=== PATIENT | female | born 1965 | race Caucasian/White ===

== ENCOUNTER 2018-11-20 18:57 | Emergency (ER) | payer BC ==
--- NOTE | 2018-11-20 20:27 | ED ---
Upper Extremity Pain - HPI Summary HPI Summary: This patient is a 53 year old female presenting to [facility] with a chief complaint of pain and swelling in the third digit of her left hand. The patient states this was caused by a scratch 2 weeks ago and has noticed the increased swelling and pain in the last 4-5 days. She states [place] and someone who happened to be a nurse there saw it and suggested she come to the ED. She states the cat used to be feral so she does not know if the cat has had her vaccinations. She rates her pain 5/10 in severity. - History of Current Complaint Chief Complaint: EDExtremityUpper Stated Complaint: LT MIDDLE FINGER CAT SCRATCH PER PT Time Seen by Provider: 11/20/18 20:12 Hx Obtained From: Patient Mechanism Of Injury: Other - Animal scratch Onset/Duration: Started Days Ago Timing: Lasting Days Pain Location: Finger - Allergies/Home Medications Allergies/Adverse Reactions: Allergies Allergy/AdvReac Type Severity Reaction Status Date / Time chlorhexidine Allergy Rash And Verified 11/20/18 19:41 Itching PMH/Surg Hx/FS Hx/Imm Hx Endocrine/Hematology History: Denies: Hx Diabetes - Surgical History Surgical History: Yes Surgery Procedure, Year, and Place: Hysterectomy in October 2018. - Immunization History Date of Tetanus Vaccine: unknown Infectious Disease History: No Infectious Disease History: Denies: Traveled Outside the [place] in Last 30 Days - Family History Known Family History: Negative: Seizure Disorder - Social History Alcohol Use: Occasionally Substance Use Type: Reports: None Smoking Status (MU): Never Smoked Tobacco Review of Systems Negative: Fever, Chills Negative: Arthralgia, Myalgia All Other Systems Reviewed And Are Negative: No Physical Exam - Summary Physical Exam Summary: Appearance: Well-appearing, Well-nourished, lying in bed comfortably Skin: Warm, dry, no obvious rash. Paronychia on left third digit. Eyes: sclera anicteric, no conjunctival pallor ENT: mucous membranes moist, pharynx appears normal Neck: Supple, nontender Respiratory: Clear to auscultation, no signs of respiratory distress Cardiovascular: Normal S1, S2. No murmurs. Normal distal pulses in tibial and radial bilaterally. Abdomen: Soft, nontender, normal active bowel sounds present Musculoskeletal: Normal, Strength/ROM Intact Neurological: A&Ox3, awake and alert, mentation is normal, speech is fluent and appropriate Psychiatric: affect is normal, does not appear anxious or depressed Triage Information Reviewed: Yes Vital Signs On Initial Exam: Initial Vitals Temp Pulse Resp BP Pulse Ox 98.9 F 79 16 147/94 97 11/20/18 19:00 11/20/18 19:00 11/20/18 19:00 11/20/18 19:00 11/20/18 19:00 Vital Signs Reviewed: Yes Diagnostics - Vital Signs Vital Signs Temp Pulse Resp BP Pulse Ox 11/20/18 19:00 98.9 F 79 16 147/94 97 - Laboratory Lab Statement: Any lab studies that have been ordered have been reviewed, and results considered in the medical decision making process. Course/Dx - Course Course Of Treatment: This patient is a 53 year old female presenting to [facility] with a chief complaint of pain and swelling in the third digit of her left hand , caused by a cat scratch. Physical exam was remarkable for paronychia on the affected area. I performed a digital block on the involved finger to good effect. After this I trimmed the edges of the nail after the patient removed the artificial nail, and debris did some granulation tissue in the area. No pus was able to be expressed. Given the apparent relationship with this infection with cat scratch I prescribed Augmentin. I think the paronychia will heal quite well with antibiotics and warm soaks. A plan for discharge was discussed with the patient and she was agreeable with this plan. - Diagnoses Provider Diagnoses: Paronychia Discharge - Sign-Out/Discharge Documenting (check all that apply): Patient Departure - Discharge Patient Received Moderate/Deep Sedation with Procedure: No - Discharge Plan Condition: Good Disposition: HOME Prescriptions: Amoxicillin/Clavulanate TAB* [Augmentin TAB 875*] 875 mg PO BID #10 tab Patient Education Materials: Paronychia (ED) Referrals: Dewey Knott MD [Medical Doctor] - Additional Instructions: The finger will likely be pretty sore in the morning when the anesthetic is worn off from what I did tonight, but should feel better as the day goes on. Take the antibiotic and do warm water soaks 3-4 times daily. It should heal up over the next week or so. Dr. Knott or one of his colleagues should be able to help you with the problem with your hand. - Billing Disposition and Condition Condition: GOOD Disposition: Home - Attestation Statements Document Initiated by Umair: Yes Documenting Scribe: Jerardo Hodge Provider For Whom Umair is Documenting (Include Credential): Marvel Miranda MD Scrib[employer]ian Attestation: Jerardo Cisse, scribed for Marvel Miranda MD on 11/21/18 at 0431. Scribe Documentation Reviewed: Yes Provider Attestation: The documentation as recorded by the Jerardo gil accurately reflects the service I personally performed and the decisions made by me, Marvel Miranda MD Status of Scribe Document: Viewed
[2018-11-20] MEDS ORDERED: Tetan/Diph/Pertus SYR(Tdap)* 0.5 ML SYR(BOOSTRIX) use SYR IM ONE (20:29)
[2018-11-20] MEDS ORDERED: Amoxicillin/Clavulanate TAB* 875 MG PO ONE (20:29)
[2018-11-20] MEDS ORDERED: Bupivacaine 0.5% W/EPI SDV* 10 ML VIAL INJ ONE (20:29)
[2018-11-20] MEDS ORDERED: Lidocaine 2% EPI 1:200000 MPF* 10 ML VIAL INJ ONE (20:29)
[2018-11-20] MEDS ORDERED: Bupivacaine 0.5% W/EPI SDV* 30 ML VIAL ONE (20:35)
[2018-11-20] MEDS ORDERED: Lidocaine 2% w/ EPI 1:200,000* 20 ML VIAL ONE (20:35)
[2018-11-20] MEDS ORDERED: Bupivacaine 0.5% W/EPI SDV* 30 ML VIAL INJ ONE (21:43)
[2018-11-20] MEDS ORDERED: Lidocaine 2% w/ EPI 1:200,000* 20 ML VIAL INJ ONE (21:43)
[2018-11-20 22:18] VITALS: BP 137/86
== END 2018-11-20 22:17 | disposition home or self-care (01) ==
LOC: ED 18:57
DX: L03.012 Cellulitis of left finger (principal); Z23 Encounter for immunization; Z88.8 Allergy status to other drugs, medicaments and biological substances
CPT/HCPCS: 90471; 99282; A9270-GY